=== PATIENT | female | born 1990 | race Caucasian/White ===

== ENCOUNTER 2016-12-24 08:35 | Emergency (ER) | payer MEDICAID ==
[2016-12-24 09:36] LABS: UA SPECIFIC GRAVITY >=1.030 (1.005-1.035); microscopic required? YES; urine erythrocyte 3+ (NEGATIVE)
[2016-12-24 10:34] VITALS: BP 106/61
== END 2016-12-24 10:34 | disposition home or self-care (01) ==
LOC: ED 08:35
PROVIDERS: Emergency Medicine
DX: N30.00 Acute cystitis without hematuria (principal); J45.909 Unspecified asthma, uncomplicated; Z79.899 Other long term (current) drug therapy

== ENCOUNTER 2017-01-07 18:16 | Emergency (ER) | payer MEDICAID ==
[2017-01-07 20:41] VITALS: BP 122/74
== END 2017-01-07 20:41 | disposition home or self-care (01) ==
LOC: ED 18:16
DX: N30.90 Cystitis, unspecified without hematuria (principal); N76.0 Acute vaginitis; J45.909 Unspecified asthma, uncomplicated

== ENCOUNTER 2017-10-05 14:39 | Emergency (ER) | payer MEDICAID ==
[~2017-10-05] VITALS: Ht 157.5 cm; Wt 82.1 kg
[2017-10-05 14:42] VITALS: BP 120/75; Ht 157.5 cm; Wt 82.1 kg
== END 2017-10-05 15:16 | disposition home or self-care (01) ==
LOC: ED 14:39
DX: S50.02XA Contusion of left elbow, initial encounter (principal); J45.909 Unspecified asthma, uncomplicated; W01.0XXA Fall on same level from slipping, tripping and stumbling without subsequent striking against object, initial encounter; Y93.89 Activity, other specified; Y92.89 Other specified places as the place of occurrence of the external cause; Y99.8 Other external cause status

== ENCOUNTER 2018-02-21 13:07 | Emergency (ER) | payer MEDICAID ==
[~2018-02-21] VITALS: Ht 160 cm; Wt 84.8 kg
[2018-02-21 13:28] VITALS: BP 144/84; Ht 160 cm; Wt 84.8 kg
== END 2018-02-21 14:58 | disposition home or self-care (01) ==
LOC: ED 13:07
DX: N39.0 Urinary tract infection, site not specified (principal); J45.909 Unspecified asthma, uncomplicated; Z87.19 Personal history of other diseases of the digestive system
CPT/HCPCS: 87491; 87591

== ENCOUNTER 2018-08-02 18:11 | Emergency (ER) | payer MEDICAID ==
[~2018-08-02] VITALS: Ht 157.5 cm; Wt 78.0 kg
[2018-08-02 18:43] VITALS: Ht 157.5 cm; Wt 78.0 kg
[2018-08-02 22:48] VITALS: BP 119/72
== END 2018-08-02 22:48 | disposition home or self-care (01) ==
LOC: ED 18:11
DX: N39.0 Urinary tract infection, site not specified (principal); N76.0 Acute vaginitis; J45.909 Unspecified asthma, uncomplicated; Z90.49 Acquired absence of other specified parts of digestive tract
CPT/HCPCS: J1885

== ENCOUNTER 2018-09-29 17:01 | Emergency (ER) | payer MEDICAID ==
[~2018-09-29] VITALS: Ht 157.5 cm; Wt 76.2 kg
[2018-09-29 17:15] VITALS: Ht 157.5 cm; Wt 76.2 kg
[2018-09-29 20:53] LABS: UA SPECIFIC GRAVITY >=1.030 (1.005-1.035); microscopic required? YES; urine erythrocyte 3+ (NEGATIVE)
[2018-09-29 21:01] VITALS: BP 124/83
== END 2018-09-29 21:01 | disposition home or self-care (01) ==
LOC: ED 17:01
PROVIDERS: Emergency Medicine
DX: N39.0 Urinary tract infection, site not specified (principal); J45.909 Unspecified asthma, uncomplicated; Z90.49 Acquired absence of other specified parts of digestive tract
CPT/HCPCS: 87491; 87591; J1885

== ENCOUNTER 2019-03-16 07:31 | Emergency (ER) | payer MEDICAID ==
[~2019-03-16] VITALS: Ht 157.5 cm; Wt 73.5 kg
[2019-03-16 07:42] VITALS: BP 118/78; Ht 157.5 cm; Wt 73.5 kg
[2019-03-16 08:23] LABS: UA SPECIFIC GRAVITY 1.025 (1.005-1.035); microscopic required? YES; urine erythrocyte 2+ (NEGATIVE)
== END 2019-03-16 09:47 | disposition home or self-care (01) ==
LOC: ED 07:31
PROVIDERS: Emergency Medicine
DX: N39.0 Urinary tract infection, site not specified (principal); J45.909 Unspecified asthma, uncomplicated
CPT/HCPCS: 87491; 87591; J1885

== ENCOUNTER 2019-03-16 11:13 | Emergency (ER) | payer MEDICAID ==
[~2019-03-16] VITALS: Ht 157.5 cm; Wt 73.9 kg
[2019-03-16 11:43] VITALS: Ht 157.5 cm; Wt 73.9 kg
[2019-03-16 14:00] LABS: BASOPHIL % 0.5 % (0-2); PLATELET COUNT 276 x10^3mcL (130-400); RED CELL DISTRIBUTION WIDTH 13.8 % (11.5-14.5)
[2019-03-16 14:17] LABS: CALCIUM 8.9 mg/dL (8.5-10.1); CARBON DIOXIDE 26.4 mmol/L (21-32); CHLORIDE SERUM 106 mmol/L (98-107); CREATININE SERUM 0.7 mg/dL (0.6-1.0); GFR1 > 60 mL/min; GLUCOSE SERUM 91 mg/dL (74-106); POTASSIUM SERUM 4.1 mmol/L (3.5-5.1); SODIUM SERUM 141 mmol/L (136-145)
[2019-03-16 14:21] LABS: ALBUMIN 4.1 g/dL (3.4-5.0); ALKALINE PHOSPHATASE 77 U/L (46-116); ALT/SGPT 23 U/L (14-59); AST/SGOT 15 U/L (15-37); BILIRUBIN TOTAL 0.34 mg/dL (0.20-1.00); LIPASE 231 IU/L (73-393); TOTAL PROTEIN, SERUM 7.4 g/dL (6.4-8.2)
[2019-03-16 16:01] VITALS: BP 105/65
== END 2019-03-16 18:42 | disposition home or self-care (01) ==
LOC: ED 11:13
PROVIDERS: Emergency Medicine
DX: R19.09 Other intra-abdominal and pelvic swelling, mass and lump (principal); J45.909 Unspecified asthma, uncomplicated
CPT/HCPCS: 85378; J2270; J2405; J7030; Q9967